=== PATIENT | male | born 1995 | race Caucasian/White ===

== ENCOUNTER 2025-07-25 08:11 | Emergency (ER) | payer OTHER, SELFPAY ==
--- OUTSIDE RECORDS SUMMARY | 2004-02-24 19:00 | XMS_ITS | Continuity of Care Document ---
Author Organization [facility] Address [id number] [place] [phone] Phone Care Team Providers Care Civil Engineering Draftsperson Name Role Phone Brandie Bishop MD Unavailable Unavailable Advance Directives Directive Yes / No Effective Date File Name No Information Encounters Encounter Description Practice Location Reason(s) For Visit Diagnoses Date Provider Providers Copied on Encounter [facility], [address], [address] [place] [address], tel:[phone] [facility] No Information Edna Brandie. [address] [place], [place], [address] [place] [address], . tel:[phone] [facility], [address] [place] [address], [id number], tel:[phone] [facility] PNEUMONIA, ORGANISM NOS Edna Brandie. [address] [place], [place], [address] [place] [address], . tel:[phone] [facility] [address] [place] [address], [id number], tel:[phone] [facility] JOINT PAIN-MULT JTS Edna Brandie. [address] [place], [place], [id number], . tel:[phone] Family History Family Member Type Diagnosis Age At Onset No Information Immunizations Vaccine Date Status Comments 47919 - DTaP_DTP_DT_PEDS administered Latia rce: Source Unspecified 68729 - MMR administered Source: Source Unspecified - Polio_OPV_IPV administered Source : Source Unspecified Payers Payer name Insurance type Covered democrat ID Authoriza tion(s) No Information Social History Type Description Quantity Date Captured Comments Sex Male Smoking Status No Information Chief Complaint And Reason For Visit No Information Reason For Referral Reason For Referral No Information History Of Present Illness Encounter Date Complaint History Of Prese nt Illness No Information Functional Status Date Functional Assessmen t No Information Instructions Date Instruction Additional Infor mation No Information Assessments Type Assessment Date No Information Patient Care Teams Name Effective Dates (start - stop) Status Members No Information
[2025-07-25 08:20] VITALS: BP 137/84; PULSE 83; RESP 16; TEMP 36.3; O2SAT 99
--- OUTSIDE RECORDS SUMMARY | 2025-07-25 08:20 | XMS_ITS | Clinical Summary ---
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 Gender Identity Not on file Sexual Orientation Not on file Plan of Treatment Health Maintenance Due Date Last Done Comments Hepatitis C Virus (HCV) Screening 1995 Hepatitis B Immunization (1 of 3 - 19+ 3-dose series) 2014 Human Papillomavirus (HPV) Immunization (1 - 3-dose SCDM series) 2022 Influenza Immunization (#1) 2025 08/2 03/2021, 09/07/2019, 09/03/2019, Additional history exists SARS-COV-2 Immunization (2024- season) 2025 12/25/2020, 12/04/2020 Respiratory Syncytial Virus (RSV) Immunization (Adult) (1 - 1-dose 75+ series) 2070 DTaP/Tdap/Td Immunization Discontinued 09/03/2019 TdaP Immunization Completed 09/03/2019 Meningococcal Immunization (ACWY) Aged Out No longer eligible based on patient's age to complete this topic Pneumococcal Immunization Combined Aged Out No longer eligible based on patient's age to complete this topic Rotavirus Immunization Aged Out No lo nger eligible based on patient's age to complete this topic
--- OUTSIDE RECORDS SUMMARY | 2025-07-25 08:20 | XMS_ITS | Clinical Summary ---
Author Organization [facility] Address [address] [place] [address] Care Team Providers Care Hazardous Substances Engineer Name Role Phone Unavailable Primary Care Provider Unavailabl e Source Comments [facility],non-owned Affiliates and Associated Physician Practices is amultiple site organization consisting of ambulatory clinics and hospital sitesin [place], [place], [place] and [place]. This disclosure is being madepursuant to the Care Everywhere program and may not contain all information available regarding this patient. Last updated 18.[facility] Social History Tobacco Use Types Packs/Day Years Used Date Smoking Tobacco: Never Assessed Sex and Gender Information Value Date Recorded Sex Assigned at Not on file Legal Sex Male 12:10 PM CDT Gender Identity Not on file Sexual Orientation Not on file Plan of Treatment Health Maintenance Due Date Last Done Comments HIV SCREENING 2010 HEPATITIS C SCREENING 05/17/2013 DTAP/TDAP/TD VACCINES (1 - Tdap) 2014 HEPATITIS B VACCINE (1 of 3 - 19+ 3-dose series) 2014 HPV VACCINE (1 - 3-dose SCDM series) 2022 DEPRESSION SCREENING 10/10/2024 COVID-19 VACCINE (1 - 2023-2 5 season) 2025 INFLUENZA VACCINE (#1) 2025 ZOSTER VACCINE (1 of 2) 2045 HIB VACCINE Aged Out No longer eligi ble based on patient's age to complete this topic MENINGOCOCCAL (Group B) VACC INE SHARED DECISION-MAKING Aged Out No longer eligibl e based on patient's age to complete this topic MENINGOCOCCAL GROUPS A/C/Y/W VACCINE Aged Out No longer eligible b ased on patient's age to complete this topic PNEUMOCOCCAL VACCINE Aged Out No long er eligible based on patient's age to complete this topic Insurance ESTELLE Member Subscriber Plan / Payer (Ef fective 2019-Present) Name:Wale Tidwell Relation to Subscriber:Self Name:WALE TIDWELL Payer ID:[id number] (NAIC) Type:[facility] Address: [facility] [id number] [place] [id number]
--- OUTSIDE RECORDS SUMMARY | 2025-07-25 08:20 | XMS_ITS | Encounter Summary ---
Author Organization [facility] Address [address] [place] [address] Care Team Providers Care Mat Man Name Role Phone Unavailable Primary Care Provider Unavailabl e Encounter Details Date Type Department Care Team (Late st Contact Info) Description 03/24/2020 Lab Requisition [facility] D[facility] Lab [address] [place] [address] Wale Colunga DO [facility] [address] Social History Tobacco Use Types Packs/Day Years Used Date Smoking Tobacco: Never Assessed Sex and Gender Information Value Date Recorded Sex Assigned at Not on file Legal Sex Male 12:10 PM CDT Gender Identity Not on file Sexual Orientation Not on file documented as of this encounter Plan of Treatment Not on file documented as of this encounter Procedures Procedure Name Priority Date/Time Associated Diagnosis Comments DERMATOPATHOLOGY Routine 03/24/2020 12:0 0 AM CDT documented in this encounter Results * DERMATOPATHOLOGY (03/24/2020 12:00 AM CDT) Case Report Dermatopathology Report Case: [id number] Authorizing Provider: Wale Colunga DO Collected: 03/24/2020 12:00 AM Ordering Location: [facility] D[facility] Lab Received: 03/24/2020 12:48 PM Pathologist: Ania Perkins MD Specimen: Skin, right axilla 0 8:06 PM CDT DERMATOPATHOLOGY LABORATORY Final Diagnosis Specimen A. 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 0 8:06 PM CDT DERMATOPATHOLOGY LABORATORY Gross Description Specimen A: Received is one formalin filled container labeled with the patient's name and designated right axilla. The specimen consists of an excision submitted in 2 pieces measuring [id number] & [id number]. Jar 0. 0 8:06 PM CDT DERMATOPATHOLOGY LABORATORY Microscopic Description Specimen A. SKIN, right axilla: Neutrophils, histiocytes, and multinucleated giant cells are present within the dermis. 0 8:06 PM CDT DERMATOPATHOLOGY LABORATORY Disclaimer An external and internal positive and negative controls are appropriate for the histochemical, immunohistochemical and immunofluorescence stain(s) in this case (if any), except where stated explicitly. The performance characteristics of the stain(s) cited in this report were developed and its performance characteristic determined by the Dermatopathology Laboratory at [facility], directed by Dr. Zach Montoya. These tests need not be, and therefore are not, approved by the [place] Food and Drug Administration. The tests are used for clinical purposes. Billing Codes Specimen Charges Stain Charges 36458 1 0 8:06 PM CDT DERMATOPATHOLOGY LABORATORY Embedded Images 0 8:06 PM CDT DERMATOPATHOLOGY LABORATORY Pathology/Cytolog y TISSUE SPECIMEN FROM SKIN / Unknown 03/24/2020 03/24/2020 12:48 PM CDT us Wale Colunga DO LAB - PATHOLOGY/CYTOLOGY ORDERA BLES Final Result DERMATOPATHOLOGY LABORATORY [facility] - Department of Dermatology [facility]/[address] [phone] documented in this encounter Visit Diagnoses Not on filedocumented in this encounter
--- OUTSIDE RECORDS SUMMARY | 2025-07-25 08:20 | XMS_ITS | Clinical Summary ---
Author Organization [facility] Address [address] [place] [phone] Care Team Providers Care Rail Manager Name Role Phone Portia Heath MD Primary Care Provider [phone] Allergies No known active allergies Medications hydrocortisone 2.5 % cream PLEASE SEE ATTACHED FOR DETAILED DIRECTIONS 01/19/20 25 Active ketoconazole (NIZORAL) 2 % cream MIX WITH HYDROCORTISONE AND APPLY TWICE DAILY NEEDED. 01/19/[address] (CYMBALTA) 60 mg capsule Take 1 capsule (60 mg total) by mouth daily 30 capsule 2 07/02/[address] (CYMBALTA) 30 mg capsule TAKE 1 CAPSULE BY MOUTH EVERY DAY 30 capsule 3 05/22/20 25 025 Discontin ued(Alter allan therapy) Active Problems Problem Noted Date Diagnosed Date Tinea corporis 04/07/2021 Assessment & Plan (06/04/2021 8:10 AM CDT): This is been resistance, I am going to change his topical to clotrimazole and when add some Diflucan every other day for 4 doses we did discuss med use potential side effects if patient has any continuation of antifungal therapy he will need liver enzymes drawn. We did also discuss skin care and potential barriers to keep skin off skin Assessment & Plan (04/07/2021 7:53 AM CDT): CPM, if not better 2 weeks, may call for new script Visit for suture removal 04/03/2020 Assessment & Plan (04/03/2020 7:05 AM CDT): Sutures removed, incision healing with no signs infection, skin care discussed and signs and symptoms to monitor for and call clinic EIC (epidermal inclusion cyst) 03/06/2020 Assessment & Plan (03/06/2020 9:14 AM CDT): Neck and right axilla, not infected, schedule excision Pain of upper abdomen 02/19/2020 Assessment & Plan (03/06/2020 9:10 AM CDT): Referral to surgery for gallbladder Assessment & Plan (02/19/2020 6:54 AM CDT): Discussed diet and s/s that would warrant urgent attention, getting RUQ US and labs Bloating 02/19/2020 Assessment & Plan (03/06/2020 9:10 AM CDT): Diet as discussed and he is using lactose Assessment & Plan (02/19/2020 6:55 AM CDT): Discussed all the tums and acid may be causing bloating, also discussed diet. Will try prilosec. Gastroesophageal reflux disease without esophagi tis 02/19/2020 Assessment & Plan (06/04/2021 8:09 AM CDT): Images from the original note were not included. Avoid spicy, fried, greasy foods Keep hydrated with clear liquids Elevate HOB 2- 3 inches Avoid or cut down on caffeines, chocolates, and ETOH No late meals, or heavy meals after 7 pm Reg daily exercise No tight fitting clothing Stop smoking - if smoker Watch for worsening symptoms - ie diarrhea, vomiting, nausea, blood per rectum, vomiting up blood ,fever, arthralgias, rash etc. RTC prn or if new symptoms arise Pt or parent verbalizes understanding Assessment & Plan (03/06/2020 9:10 AM CDT): Images from the original note were not included. Avoid spicy, fried, greasy foods Keep hydrated with clear liquids Elevate HOB 2- 3 inches Avoid or cut down on caffeines, chocolates, and ETOH No late meals, or heavy meals after 7 pm Reg daily exercise No tight fitting clothing Stop smoking - if smoker Watch for worsening symptoms - ie diarrhea, vomiting, nausea, blood per rectum, vomiting up blood ,fever, arthralgias, rash etc. RTC prn or if new symptoms arise Pt or parent verbalizes understanding Assessment & Plan (02/19/2020 6:54 AM CDT): Images from the original note were not included. .Avoid spicy, fried, greasy foods Keep hydrated with clear liquids Elevate HOB 2-3 inches Avoid or cut down on caffeines, chocolates, and ETOH No late meals, or heavy meals after 7 pm Reg daily exercise No tight fitting clothing Stop smoking - if smoker Watch for worsening symptoms - ie diarrhea, vomiting, nausea, blood per rectum, vomiting up blood ,fever, arthralgias, rash etc. RTC prn or if new symptoms arise Pt or parent verbalizes understanding Annual physical exam 09/03/2019 Assessment & Plan (01/29/2025 12:32 PM CDT): Patient uses seatbelt. He was encouraged to exercise 30 minutes daily 5 days a week. Blood work was ordered. Patient does not smoke. Assessment & Plan (09/20/2023 7:44 AM CIA AGENT): HEALTHCARE MAINTENANCE updated Assessment & Plan (09/03/2019 1:52 PM CIA AGENT): Never smoker Alcohol use: none currently Sexual transmitted infection testing: declines BP 128/86, mildly elevated. Discussed diet and exercise. Continue to monitor PHQ Screening PHQ-2 Total Score (If total score is 3 or more points, staff should administer the PHQ-9): 0 PHQ-9 Total Score: 0 Body mass index is 37.57 kg/m . Discussed diet and exercise Tdap and flu today Check lipids and A1c for insurance BMI 37.0-37.9, adult 09/03/2019 Assessment & Plan (09/03/2019 1:56 PM CIA AGENT): BMI Follow-up includes: nutrition counseling and exercise counseling. Depression Assessment & Plan (02/26/2025 2:05 PM CDT): Controlled on duloxetine 30 mg daily. Patient feels back to normal. He does not think he needs any changes in his medications. Assessment & Plan (01/29/2025 12:32 PM CDT): Patient with history of recurrent depression. He was on escitalopram in the past. Patient said that the last time he took medications was about 5 years ago. Patient noticed recurrent depression in the last few months. He has no suicidal ideations. He likes to try different medication. He had weight gain with the escitalopram. We will try Cymbalta 30 mg daily. Side effects were explained. Patient was advised to seek counseling. Will evaluate him again in 1 month. Immunizations Immunization Administration Dates Next Due Influenza, Quadrivalent, Spl it, Preservative Free, Intramuscular 07/14/2023,07/22/2022,06/04/2021,09/03 Influenza, Unspecified 07/14/2023,2021,06/04/2021,07/10(Deferred: Patient Refused),07/10/2020(Deferred: Patient Refused),09/07/2019,07/10/2018 Pfizer SARS-CoV-2 Monovalent Vaccination (12+ Yrs) PURPLE 09/01/2021 Tdap 09/03/2019 Surgical History Surgery Date Site/Laterality Comments CHOLECYSTECTOMY Medical History Medical History Date Comments Eczema Anxiety 10/10/2014 Depression Hidradenitis suppurativa Family History Medical History Relation Name Comments No Known Problems Brother No Known Problems Father No Known Problems Mother No Known Problems Sister Relation Name Status Comments Brother Alive Father Alive Mother Alive Sister Alive Social History Tobacco Use Types Packs/Day Years Used Date Smoking Tobacco: Never Smokeless Tobacco: Never Tobacco Cessation:Counseling Given: Not Answered Alcohol Use Standard Drinks/Week Comments Not Currently 0 (1 standard drink = 0.6 oz pur e alcohol) AUDIT-C Answer Date Recorded Q1: How often do you have a drink containing alc ohol? Monthly or less 02/26/2025 Q2: How many drinks containi ng alcohol do you have on a typical day when you are drinking? 5 or 6 02/26/2025 Q3: How often do you have si x or more drinks on one occasion? Less than monthly 02/26/2025 PHQ-2 Answer Date Recorded PHQ-2 Total Score (If total score is 3 or more points, staff should administer the PHQ-9) 0 02/26/2025 PHQ-9 Answer Date Recorded PHQ-9 Total Score 18 01/29/2025 Sex and Gender Information Value Date Recorded Sex Assigned at Not on file Legal Sex Male 9:26 PM CIA AGENT Gender Identity Male 04/07/2021 7:25 AM CDT Sexual Orientation Straight 04/07/2021 7: 25 AM CDT Obstetrics History Last Filed Vital Signs Vital Sign Reading Time Taken Comments Blood Pressure 124/70 02/26/2025 1:07 PM CDT Pulse 84 02/26/2025 1:07 PM CDT Temperature 36.7 C (98 F) 02/26/2025 1:07 PM CDT Respiratory Rate 16 02/26/2025 1:07 PM CDT Oxygen Saturation 97% 02/26/2025 1:07 PM CDT Inhaled Oxygen Concentration - - Weight 103.5 kg (228 lb 3.2 oz) 02/26/2025 1:07 PM CDT Height 182.9 cm (6') 02/26/2025 1:07 PM CDT Body Mass Index 30.95 02/26/2025 1:07 PM CDT Plan of Treatment Health Maintenance Due Date Last Done Comments Hepatitis B Screening 2013 HPV Vaccines (2 - 3-dose SCDM series) 04/25/2025 03/28/2025 Covid-19 Vaccine ( season) 2025 07/31/2023, 08/11/2022, 09/01/2021, Additional history exists Influenza Vaccine (#1) 2025 , 07/14/2023, 07/22/2022, Additional history exists Regular Well Visit/Exam 18-64 01/29/2026 01/29/2025, 09/20/2023, 09/03/2019 Depression Screening 02/26/2026 02/26/2025, 01/29/2025, 01/29/2025, Additional history exists DTaP/Tdap/Td Vaccine (2 - Td or Tdap) 09/03/2029 09/03/2019 Hepatitis C Screening Completed 01/29/2025 Pneumococcal vaccine <65 Aged Out No longer eligible based on patient's age to complete this topic Varicella Vaccines Discontinued Procedures Procedure Name Priority Date/Time Associated Diagnosis Comments HEPATITIS C ANTIBODY Routine 01/29/2025 12:27 PM CDT Annual physical exam from Last 3 Months or Most Recently Relevant to Health Maintenance Results * Hepatitis C antibody Blood (01/29/2025 12:27 PM CDT) Hep C Ab Nonreactive Nonreactive Comment: Antibodies to HCV not detected. Does NOT exclude the possibility of recent exposure to HCV. Current interpretive data was last revised on 22 Interpretive Data Nonreactive: Antibodies to HCV not detected. Does NOT exclude the possibility of recent exposure to HCV. Equivocal: Equivocal for HCV antibodies. Supplemental molecular testing will be automatically performed to determine infection status in accordance with current CDC screening recommendations. Reactive: Positive for HCV antibodies. This may represent current or past HCV infection. Supplemental molecular testing will be automatically performed to determine current infection status in accordance with current CDC screening recommendations. Interpretive data was last revised on 2019. Blood 01/29/2025 12:2 7 PM CDT 01/29/2025 12:57 PM CDT Portia Heath MD LAB MICROBIOLOGY - GENERAL ORDERABLES Final Result Performing Organization Address City/State/ZIP Co ak Phone Number [facility] [address] [facility] [place] [address] from Last 3 Months or Most Recently Relevant to Health Maintenance Insurance [facility] HMO Care Teams Rail Manager Relationship Specialty Start Date End Date Portia Heath MD [address] [place] [address] PCP - General Internal Medicine 01/29/25
--- NOTE | 2025-07-25 08:25 | ED.MALEGU ---
HPI - Male Genitourinary General Chief complaint: Wound/Laceration Stated complaint: testicles Time Seen by Provider: 07/25/25 08:25 Source: patient Mode of arrival: ambulatory Limitations: no limitations History of Present Illness HPI Narrative: 30-year-old male presents with complaint of bleeding to scrotum. Patient states after showering last night he noticed a spot that was bleeding to scrotum. Must have Scrubbed himself too hard with his loofa. all systems reviewed and negative except as noted above. Related Data Home Medications ?Medication ?Instructions ?Recorded ?Confirmed ?Last Taken ?Type duloxetine 60 mg capsule,delayed 60 mg PO DAILY 07/25/25 07/25/25 Unknown History release (Cymbalta) Allergies Allergy/AdvReac Type Severity Reaction Status Date / Time No Known Allergies Allergy Verified 07/25/25 08:26 PMFSH Comments At time of signature, agree with nursing past medical, surgical, social and family history. There is no relevant family history pertinent to the presenting complaint. Exam Narrative: GENERAL: This is a well-nourished, well-developed patient, in no apparent distress. HEAD: normocephalic, atraumatic. EYES: PERRL. Sclera clear/white. Vision is grossly intact. EARS: External ears normal NOSE: External nose normal NECK: Neck supple, non-tender without lymphadenopathy, masses or thyromegaly. CARDIOVASCULAR: Regular rate and rhythm without murmurs, gallops, or rubs. RESPIRATORY: Clear to auscultation. Breath sounds equal bilaterally. No wheezes, rales, or rhonchi. Urogenital: pinpoint wound noted to scrotum without any active bleeding. No signs of infection. Kimberly. RN tire tester. SKIN: warm, Dry, intact with no suspicious lesions or rash, good texture and turgor. NEURO: awake, alert, and oriented to person, place and time. There were no obvious focal neurologic abnormalities. EXTREMITIES: No joint tenderness, effusion, or edema noted. Course Course Level of Care: Express Care Visit Vital Signs Vital signs: Vital Signs Temperature 36.3 C L 07/25/25 08:20 Pulse Rate 83 07/25/25 08:20 Respiratory Rate 16 07/25/25 08:20 Blood Pressure 137/84 07/25/25 08:20 Pulse Oximetry 99 07/25/25 08:20 Oxygen Delivery Room Air 07/25/25 08:20 Temperature 36.3 C L 07/25/25 08:20 Pulse Rate 83 07/25/25 08:20 Respiratory Rate 16 07/25/25 08:20 Blood Pressure 137/84 07/25/25 08:20 Pulse Oximetry 99 07/25/25 08:20 Oxygen Delivery Room Air 07/25/25 08:20 Reviewed MDM - Male Genitourinary MDM Narrative Medical decision making narrative: pinpoint wound to patient's scrotum cleaned with sterile saline. No active bleeding. No interventions needed. Discharge Plan Discharge Clinical Impression: Visit for wound check Patient Disposition: Home Condition: Stable Instructions: Acute Wounds (ED) Additional Instructions: Keep wound clean and dry. There was no bleeding noted to wound on exam. There were no signs of infection. See your primary care physician as needed. Patient Language: Estonian Prescriptions: No Action duloxetine [Cymbalta] 60 mg capsule,delayed release(DR/EC) 60 mg PO DAILY Follow-up/Referrals: UNKNOWN,DOCTOR [Primary Care Provider] Time of Disposition: 08:34
== END 2025-07-25 08:37 | disposition home or self-care (01) ==
PROVIDERS: Emergency Provider Nurse Practitioner Family
DX: S31.30XA Unspecified open wound of scrotum and testes, initial encounter (principal); Z79.899 Other long term (current) drug therapy; X58.XXXA Exposure to other specified factors, initial encounter
CPT/HCPCS: 99211; G0463